=== PATIENT | male | born 1955 | race African-American/Black ===

== ENCOUNTER 2019-12-04 19:24 | Inpatient (IN) | payer OTHER, SELFPAY ==
[2019-12-04] MEDS ORDERED: fentaNYL Citrate/PF 2,000 MCG in Sodium Chloride 0.9% 60 ML IV SCH (19:36)
[2019-12-04 19:43] LABS: Hemoglobin 13.5 g/dL (14.0-18.0); Mean Corpuscular Hemoglobin 29.4 pg (27.0-31.0); Mean Corpuscular Volume 91.9 fL (78.0-98.0); Mean Platelet Volume 8.8 fL (7.4-10.4); Platelet Count 250 thou/uL (130-400); RBC Distribution Width 11.8 % (11.5-14.5); Red Blood Cell (RBC) Count 4.61 mill/uL (4.70-6.10); White Blood Cell (WBC) Count 23.1 thou/uL (4.8-10.8)
[2019-12-04] MEDS ORDERED: niCARdipine 25 MG in Sodium Chloride 0.9% 250 ML 240 ML IVPB SCH (19:45)
[2019-12-04 19:49] LABS: Actual Bicarbonate (HCO3a) 19.5 mEq/L (22-28); Analyzer IN Cardio ER; Base Excess (BEa) -15.3 mEq/L (-2.0 to +3.0); Calcium, Ionized 1.24 mmol/L (1.12-1.30); Carboxyhemoglobin (COHb) 0.3 gm% (0.0-3.0); Hemoglobin (Hb) 14.1 g/dL (14.0-18.0); O2 Tension (PaO2) 454.7 mmHg (> 80.0); Potassium - ABG Lab 3.58 mmol/L (3.70-5.30)
[2019-12-04 19:50] LABS: CO2 Tension 100.2 mmHg (35.0-45.0); pH, Arterial 6.91 (7.35-7.45)
[2019-12-04 19:51] LABS: Puncture Site LR
[2019-12-04 19:55] LABS: Band 5 % (5-11); Eosinophils 2 % (0-10); Lymphocytes 51 % (21-51); MDiff Complete? YES; Monocytes 3 % (0-10); Myelocyte 1 % (0-0); Neutrophil 34 % (42-75); Platelet Morphology Comment Appears Adequate; RBC Morphology Normal; Reactive Lymphocytes 4 % (0-10)
--- NOTE | 2019-12-04 20:03 | RAD ---
SINGLE VIEW OF THE CHEST: Comparison: 04-07-10 History: Status post CPR and intubation for cardiopulmonary arrest. FINDINGS: Single view of the chest shows normal sized cardiomediastinal silhouette. There is an endotracheal tu be with its tip between the clavicles. An NG tube courses off the inferior aspect of the film. There is no evidence of consolidation, mass, or pleural effusion. IMPRESSION: Appropriate position of lines and tubes. POS: [facility]
[2019-12-04 20:09] LABS: ALT (SGPT) 33 U/L (8-55); AST (SGOT) 32 U/L (5-34); Alkaline Phosphatase 69 U/L (40-110); Anion Gap 17 mmol/L (10-20); BUN (Urea Nitrogen) 29 mg/dL (8.4-25.7); Bilirubin, Total 0.3 mg/dL (0.2-1.2); CK (CPK) 352 U/L (30-200); Calc. Creatinine Clearance 0 mL/min (70-130); Calcium 8.7 mg/dL (7.8-10.44); Carbon Dioxide 21 mmol/L (23-31); Chloride 106 mmol/L (98-107); Estimated GFR-MDRD 43; Globulin 3.4 g/dL (2.4-3.5); Glucose 281 mg/dL (80-115); Potassium 3.3 mmol/L (3.5-5.1); Protein, Total 7.4 g/dL (5.8-8.1); Sodium 141 mmol/L (136-145)
[2019-12-04 20:21] LABS: Bilirubin Negative (Negative); Blood, Urine 3+ (Negative); Clarity Extra Turbid (Clear); Glucose, Urine (Dipstick) 50 mg/dL (Negative); Leukocyte Negative Leu/uL (Negative); Nitrite Negative (Negative); Protein, Urine (Dipstick) 300 mg/dL (Neg-Trace); RBC/HPF Greater than 50 HPF (0-3); Urobilinogen Normal mg/dL (Less than 2)
[2019-12-04 20:28] LABS: Squamous Epithelial 0-3 HPF (0-3)
[2019-12-04 20:29] LABS: Bacteria/HPF None Seen HPF (None Seen); Transitional Epithelial 0-3 HPF (None Seen); WBC/HPF 0-3 HPF (0-3)
[2019-12-04] MEDS ORDERED: Fentanyl BOLUS 250 ML IVPB PRN (20:54)
[2019-12-04] MEDS ORDERED: DISCONTINUE PREVIOUS NARCOTIC PAIN MEDICATIONS AND BENZODIAZEPINES FS SCH (20:54)
[2019-12-04] MEDS ORDERED: Morphine 2 MG/ML SYRINGE SLOW IVP PRN (20:54)
[2019-12-04] MEDS ORDERED: Propofol BOLUS 1,000 MG/100 ML VIAL IV PRN (20:54)
--- NOTE | 2019-12-04 21:03 | PDOC.FPRHP ---
- History of Present Illness Chief Complaint: SOB History of Present Illness: Patient is a 64M with a PMHx of asthma, HTN, possible hx of treated Hepatitis C , and known liver abnormalities currently being worked-up in [place] that was brought to the ED via EMS after being found having an asthma exacerbation. Per report patient had been feeling progressively SOB today, which did not improve with his albuterol inhaler. EMS was called by family, after which EMS found patient having difficulty breathing with O2 sat in the 60s. Patient's heart rate reportedly slowed to the 20s and patient became unresponsive, after which EMS began CPR and intubation. The patient required 1 round of CPR before ROSC was achieved. He was given epi, 1 duoneb, and IV Magnesium, and the patient was brought to the hospital for further evaluation. Family members accompanied patient to the ED, so all of his history was attained from them. He has a hx of asthma with no reported hx of needing to be hospitalized for an exacerbation. He only uses albuterol at home. He also was thought to have a hx of Hepatitis C that was treated 5 years ago. Patient's brothers state that he has also been undergoing a [facility] [place] [facility] receives his care. ED Course: 125mg solumedrol, cardene drip started, fentanyl, 1L NS - Allergies/Adverse Reactions Allergies Allergy/AdvReac Type Severity Reaction Status Date / Time No Known Allergies Allergy Unverified 06/26/13 10:24 - History PMHx: PMHx of asthma, HTN, possible hx of treated Hepatitis C, and known liver abnormalities currently being worked-up in [place] PSHx: possible liver sx; no hx of paracentesis FHx: non-contributory Social: does not smoke; has a hx of drug and etoh use but does not use either currently - Review of Systems ROS unobtainable: due to endotracheal tube Respiratory: reports: shortness of breath - Vital signs BP: [182/107] HR: [127] RR: [28] Tmax: [98.2F] Pox: [99]% on [ventilator] Wt: [93.5kg] - Physical Exam Constitutional: other (sedated and intubated) HEENT: normocephalic and atraumatic, PERRLA, MMM Neck: supple, trachea midline Chest: no lesions Heart: RRR, normal S1/S2 Lungs: other (poor air movement, expiratory wheezing throughout) Abdomen: soft, bowel sounds present Musculoskeletal: normal structure, normal tone Neurological: other (pupillary reflexes intact; difficult to assess 2/2 paralytic) Skin: no rash/lesions, good turgor Heme/Lymphatic: no unusual bruising or bleeding, no purpura FMR H&P: Results - Labs Result Diagrams: 12/05/19 03:13 12/05/19 03:13 Lab results: WBC 23.1 thou/uL (4.8-10.8) H 12/04/19 19:31 Hgb 13.5 g/dL (14.0-18.0) L 12/04/19 19:31 Hct 42.3 % (42.0-52.0) 12/04/19 19:31 MCV 91.9 fL (78.0-98.0) 12/04/19 19:31 Plt Count 250 thou/uL (130-400) 12/04/19 19:31 Band Neuts % (Manual) 5 % (5-11) 12/04/19 19:31 ABG pH 6.91 (7.35-7.45) L* 12/04/19 19:42 ABG pCO2 100.2 mmHg (35.0-45.0) H* 12/04/19 19:42 ABG pO2 454.7 mmHg (> 80.0) H 12/04/19 19:42 Sodium 141 mmol/L (136-145) 12/04/19 19:31 Potassium 3.3 mmol/L (3.5-5.1) L 12/04/19 19:31 Chloride 106 mmol/L (98-107) 12/04/19 19:31 Carbon Dioxide 21 mmol/L (23-31) L 12/04/19 19:31 BUN 29 mg/dL (8.4-25.7) H 12/04/19 19:31 Creatinine 1.91 mg/dL (0.7-1.3) H 12/04/19 19:31 Glucose 281 mg/dL (80-115) H 12/04/19 19:31 Calcium 8.7 mg/dL (7.8-10.44) 12/04/19 19:31 Total Bilirubin 0.3 mg/dL (0.2-1.2) 12/04/19 19: AST 32 U/L (5-34) 12/04/19 19: ALT 33 U/L (8-55) 12/04/19 19: Alkaline Phosphatase 69 U/L (40-110) 12/04/19 19:31 Creatine Kinase 352 U/L (30-200) H 12/04/19 19:31 B-Natriuretic Peptide 15.7 pg/mL (0-100) 12/04/19 19: Serum Total Protein 7.4 g/dL (5.8-8.1) 12/04/19 19: Albumin 4.0 g/dL (3.4-4.8) 12/04/19 19: Urine Ketones Negative mg/dL (Negative) 12/04/19 20: Urine Blood 3+ (Negative) A 12/04/19 20: Urine Nitrite Negative (Negative) 12/04/19 20: Ur Leukocyte Esterase Negative Roberto Carlos/uL (Negative) 12/04/19 20: Urine RBC Greater than 50 HPF (0-3) A 12/04/19 20:03 Urine WBC 0-3 HPF (0-3) 12/04/19 20:03 Ur Squamous Epith Cells 0-3 HPF (0-3) 12/04/19 20:03 Urine Bacteria None Seen HPF (None Seen) 12/04/19 20:03 - EKG Interpretation EKG: Sinus tach. RBBB - Radiology Interpretation Chest x-ray Status: report reviewed by me (appropriate position of lines and tubes) FMR H&P: A/P - Problem List (1) Asthma exacerbation Current Visit: Yes Status: Acute Code(s): J45.901 - UNSPECIFIED ASTHMA WITH (ACUTE) EXACERBATION (2) HTN (hypertension) Current Visit: Yes Status: Acute Code(s): I10 - ESSENTIAL (PRIMARY) HYPERTENSION (3) Acute respiratory failure with hypoxia Current Visit: Yes Status: Acute Code(s): J96.01 - ACUTE RESPIRATORY FAILURE WITH HYPOXIA (4) Hypokalemia Current Visit: Yes Status: Acute Code(s): E87.6 - HYPOKALEMIA (5) Hyperglycemia Current Visit: Yes Status: Acute Code(s): R73.9 - HYPERGLYCEMIA, UNSPECIFIED (6) ROSIE (acute kidney injury) Current Visit: Yes Status: Acute Code(s): N17.9 - ACUTE KIDNEY FAILURE, UNSPECIFIED - Plan Patient is a 64M with PMHx of Asthma, HTN, likely Hepatitis C, admitted for acute hypoxic respiratory failure 2/2 asthma exacerbation #Acute hypoxic respiratory failure 2/2 asthma exacerbation -patient has hx of asthma, uses albuterol at home -required CPR and intubation via EMS -CXR shows appropriate placement of tube -ABG shows pH 6.91, pCO2 100.2, pO2 454.7, will repeat and monitor -ventilation protocol -will monitor respiratory status for ability to extubate -loy and prn albuterol -IV solumedrol -pulmonology consult in am #HTN -uncertainty of home meds -currently on cardene drip, will wean as tolerated -after cardene drip weaned will continue to monitor and add meds prn #Hx of possible Hep C -reportedly followed by [facility] for liver workup at this time -AST/ALT/bili wnl #Hypokalemia -potassium 3.3, and will likely continue to decrease with albuterol -will aggressively replete and continue to monitor #Hyperglycemia -glucose 187 -possible stress reaction -A1C pending -will place on ISS #ROSIE vs CKD -creatinine 1.91, GFR 43 -will continue to monitor DVT ppx: lovenox Diet: NPO Dispo: CCU for respiratory monitoring on ventilator. Will continue to monitor ABG for signs of improvement. Loy and prn albuterol. Pulmonology consult in am. Code: Full PCP: [facility] FMR H&P: Upper Level - Pertinent history 64 yo M with Hx of asthma, HTN, and treated Hep C with unknown hepatic complications here for acute respiratory failure with cardiac arrest s/p ROSC. Per family, he has a hx of asthma and generally uses albuterol inhaled as needed. He has never been hospitalized for asthma in the past. Today he started to have increasing SOB and wheezing. This progressed until he became so SOB that his family called EMS. Upon arrival, EMS noted that his O2 sat was in the 60s. He was given epi, a duoneb, and IV Mg. He then became tracy into the 20s and was unresponsive. CPR was initiated and ROSC was achieved after 1 round of CPR. He was given ketamine and rocuronium for intubation. Upon arrival to the ER and abg found a pH of 6.9 with a pCO2 of 100. Regarding his hepatic hx, per his family he was treated a few years ago. He also has had an unknown surgery on his liver in the past. He has no hx of known cirrhosis. PMHx HTN Hep C, treated Surgical hx Unknown hepatic surgery Social Hx Past etoh and IVDU No tobacco hx - Pertinent findings See quality internship note for full ROS, PE, vitals, and labs ROS unobtainable due to intubation PE General GCS 3T HEENT NCAT CV tachycardic, no murmur Resp poor air movement. Wheezing throughout Abd soft, non-distended. Laparotomy scar noted Extremities no edema, equal pedal pulses Neuro cannot fully evaluate due to paralytics on board. Pupillary reflexes intact - Plan Date/Time: 12/04/192102 I, Sunday Mcdonnell, , have evaluated this patient and agree with findings/plan as outlined by quality internship resident. Pertinent changes/additions are listed here. 1.Acute hypoxic respiratory failure secondary to asthma exacerbation - Pt is currently stable. Plan to admit to ICU -Continue scheduled albuterol neb. -Repeat ABG now, will repeat again pending results. Current abg c/w asthma exacerbation vs other obstructive pathology -Continue IV solumedrol 2.Hypertension -likely related to ketamine. Currently getting cardene gtt, would expect this to be weaned off quickly. 3.Hypokalemia -Will aggressively replace as he will be getting frequent albuterol. 4.Hyperglycemia -Possibly related to stress reaction, however this is higher than what would normally be expected. Will order A1c and start SSI 5.ROSIE vs CKD -Likely due to poor perfusion. Repeat CMP in morning PPx SCD, lovenox Diet NPO Code Full Dispo: pt is currently in stable, but in critical condition. Addendum - Attending - Attending Attestation Date/Time: 12/05/19 2707 I personally evaluated the patient and discussed the management with Dr. Mcdonnell and Fl[place]. I agree with the History, Examination, Assessment and Plan documented above with any addition or exceptions noted below. Patient s/p hypoxic arrest with subsequent ROSC 2/2 presumed asthma exacerbation. He has diffuse wheezing and poor air movement. Continue nebs, lower rate pending repeat ABG and continue prolonged I:E. Check TnI and monitor.
[2019-12-04] MEDS ORDERED: Ventilator Sedation Protocol 1 EACH FS SCH (21:06)
[2019-12-04] MEDS: Propofol 1,000 MG/100 ML VIAL IV PRN (21:10)
[2019-12-04] MEDS: Sodium Chloride 0.9% 1,000 ML IV SCH (21:11)
[2019-12-04 21:15] LABS: Actual Bicarbonate (HCO3a) 19.3 mEq/L (22-28); Base Excess (BEa) -8.7 mEq/L (-2.0 to +3.0); CO2 Tension 49.5 mmHg (35.0-45.0); Calcium, Ionized 1.19 mmol/L (1.12-1.30); Carboxyhemoglobin (COHb) 0.4 gm% (0.0-3.0); Hemoglobin (Hb) 13.8 g/dL (14.0-18.0); O2 Tension (PaO2) 304.6 mmHg (> 80.0); Potassium - ABG Lab 4.97 mmol/L (3.70-5.30)
[2019-12-04 21:16] LABS: Puncture Site RBRACHIAL; pH, Arterial 7.21 (7.35-7.45)
[2019-12-04 21:17] LABS: ALV-art Gradient 61.325 (0-20)
[2019-12-04] MEDS ORDERED: Albuterol Sulfate 1.25 MG/3 ML NEB NEB PRN (21:29)
[2019-12-04] MEDS: Albuterol Sulfate 2.5 mg/3 ml Neb NEB SCH ×2 (21:30→23:57)
[2019-12-04] MEDS: Lorazepam 2 MG/ML VIAL SLOW IVP PRN (21:39)
[2019-12-04] MEDS ORDERED: Albuterol Sulfate 1.25 MG/3 ML NEB NEB SCH (22:00)
[2019-12-04] MEDS: Potassium Chloride 40 MEQ in Sodium Chloride 0.9% 250 ML 250 ML IVPB SCH (22:41)
[2019-12-04] MEDS: HumaLOG 300 UNITS/3 ML VIAL SC PRN (22:48)
[2019-12-04 23:04] LABS: Lactic Acid 1.6 mmol/L (0.5-2.2)
[2019-12-05] MEDS: methylPREDNISolone Sod Succ/PF 125 MG/2 ML VIAL IVP SCH ×2 (00:15→06:38)
[2019-12-05] MEDS: Bacteriostatic Water 30 ML VIAL FS PRN ×2 (00:15→06:38)
[2019-12-05] MEDS: Lorazepam 2 MG/ML VIAL SLOW IVP PRN (01:08)
[2019-12-05] MEDS: Albuterol Sulfate 2.5 mg/3 ml Neb NEB SCH ×6 (01:38→10:52)
[2019-12-05] MEDS: Potassium Chloride 40 MEQ in Sodium Chloride 0.9% 250 ML 250 ML IVPB SCH (02:59)
[2019-12-05 03:56] LABS: Band 6 % (5-11); Lymphocytes 3 % (21-51); MDiff Complete? YES; Mean Corpuscular Hemoglobin 30.1 pg (27.0-31.0); Mean Corpuscular Volume 88.6 fL (78.0-98.0); Mean Platelet Volume 8.9 fL (7.4-10.4); Neutrophil 91 % (42-75); Platelet Count 175 thou/uL (130-400); Platelet Morphology Comment Appears Adequate; RBC Distribution Width 11.9 % (11.5-14.5); Red Blood Cell (RBC) Count 4.64 mill/uL (4.70-6.10); White Blood Cell (WBC) Count 13.2 thou/uL (4.8-10.8)
[2019-12-05 04:05] LABS: ALT (SGPT) 40 U/L (8-55); AST (SGOT) 34 U/L (5-34); Albumin 3.9 g/dL (3.4-4.8); Alkaline Phosphatase 65 U/L (40-110); Anion Gap 15 mmol/L (10-20); BUN (Urea Nitrogen) 31 mg/dL (8.4-25.7); Bilirubin, Total 0.4 mg/dL (0.2-1.2); Calc. Creatinine Clearance 56 mL/min (70-130); Calcium 8.9 mg/dL (7.8-10.44); Carbon Dioxide 18 mmol/L (23-31); Chloride 110 mmol/L (98-107); Estimated GFR-MDRD 47; Globulin 3.5 g/dL (2.4-3.5); Glucose 134 mg/dL (80-115); Potassium 5.2 mmol/L (3.5-5.1); Protein, Total 7.4 g/dL (5.8-8.1); Sodium 138 mmol/L (136-145)
[2019-12-05] MEDS: Propofol 1,000 MG/100 ML VIAL IV PRN (04:56)
[2019-12-05 05:06] VITALS: BMI 29.2
[2019-12-05] MEDS: Sodium Chloride 0.9% 1,000 ML IV SCH (06:37)
[2019-12-05 07:02] LABS: Actual Bicarbonate (HCO3a) 16.5 mEq/L (22-28); Base Excess (BEa) -9.8 mEq/L (-2.0 to +3.0); CO2 Tension 37.7 mmHg (35.0-45.0); Calcium, Ionized 1.21 mmol/L (1.12-1.30); Carboxyhemoglobin (COHb) 0.2 gm% (0.0-3.0); O2 Tension (PaO2) 98.7 mmHg (> 80.0); Potassium - ABG Lab 4.64 mmol/L (3.70-5.30); pH, Arterial 7.26 (7.35-7.45)
[2019-12-05 07:12] LABS: Puncture Site RRA
[2019-12-05 07:13] LABS: ALV-art Gradient 103.725 (0-20)
[2019-12-05] MEDS ORDERED: hydrALAZINE 20 MG/ML VIAL SLOW IVP PRN (08:28)
--- NOTE | 2019-12-05 08:31 | PDOC.FM ---
- Subjective Subjective: resting comfortably, intubated and sedated. Pt is off cardene drip. No acute events overnight. - Objective Vital Signs & Weight: Vital Signs (12 hours) Temp Pulse Resp BP BP Pulse Ox 12/05/19 06:52 87 151/76 H 12/05/19 06:00 28 H 12/05/19 05:10 79 28 H 97 12/05/19 04:00 97.8 F 28 H 12/05/19 03:30 78 28 H 95 12/05/19 02:00 28 H 12/05/19 01:39 73 126/64 12/05/19 01:38 72 28 H 97 12/05/19 00:00 97.9 F 28 H 12/04/19 23:57 71 28 H 99 12/04/19 22:08 98 81/53 L 12/04/19 22:00 28 H 12/04/19 21:30 111 H 28 H 100 12/04/19 21:00 98 12/04/19 20:59 119 H 185/108 H 12/04/19 20:42 97.7 F 120 H 30 H 136/82 95 Weight Admit Weight 95.3 kg Weight 95.3 kg Most Recent Monitor Data Heart Rate from ECG 82 NIBP 151/76 NIBP BP-Mean 101 Respiration from ECG 28 SpO2 98 I&O: 12/04/19 12/05/19 12/06/19 06:59 06:59 06:59 Intake Total 1169.3 Output Total 1170 Balance -0.7 Result Diagrams: 12/05/19 03:13 12/05/19 03:13 Phys Exam - Physical Examination Constitutional: NAD HEENT: moist MMs, sclera anicteric Neck: supple Respiratory: no rhonchi, wheezing present Cardiovascular: RRR, no significant murmur Gastrointestinal: soft, non-tender Musculoskeletal: no edema, pulses present sedated Deviation from normal: sedated Skin: no rash, normal turgor Dx/Plan (1) Acute respiratory failure with hypoxia Code(s): J96.01 - ACUTE RESPIRATORY FAILURE WITH HYPOXIA Status: Acute (2) Asthma exacerbation Code(s): J45.901 - UNSPECIFIED ASTHMA WITH (ACUTE) EXACERBATION Status: Acute (3) ROSIE (acute kidney injury) Code(s): N17.9 - ACUTE KIDNEY FAILURE, UNSPECIFIED Status: Acute (4) HTN (hypertension) Code(s): I10 - ESSENTIAL (PRIMARY) HYPERTENSION Status: Acute (5) Hyperglycemia Code(s): R73.9 - HYPERGLYCEMIA, UNSPECIFIED Status: Acute (6) Hypokalemia Code(s): E87.6 - HYPOKALEMIA Status: Acute - Plan Plan: Patient is a 64M with PMHx of Asthma, HTN, likely Hepatitis C, admitted for acute hypoxic respiratory failure 2/2 asthma exacerbation Acute hypoxic respiratory failure 2/2 asthma exacerbation A-patient has hx of asthma, uses albuterol at home. required CPR and intubation via EMS. ABG on admission shows pH 6.91, pCO2 100.2, pO2 454.7, has improved since then P- continue on vent, wean as tolerated per RT and pulm -monet and prn albuterol -IV solumedrol daily -pulm consult today HTN A- HTN in ER likely 2/2 ketamine and respiratory distress. Was started on cardene drip and quickly weaned. off drip now. uncertainty of home meds P- prn hydralazine -will do med rec once pt is extubated Hypokalemia, resolved A- potassium 3.3-> 5.2. albuterol may lower again. P- will continue to monitor and replace as needed Hx of possible Hep C -reportedly followed by [facility] for liver workup at this time. AST/ALT/bili wnl prediabetes A- glucose 187 on admission, likely stress reaction. A1C 6 P- SSI, accuchecks, will recommend outpt f/u ROSIE vs CKD A- creatinine 1.91, GFR 43 on admission, likely some injury component 2/2 perfusion injury during code P- will continue to monitor DVT ppx: lovenox Diet: NPO Code: Full PCP: [facility] Addendum - Attending - Attending Attestation Date/Time: 12/05/19 3852 I personally evaluated the patient and discussed the management with Dr. Andujar. I agree with the History, Examination, Assessment and Plan documented above with any addition or exceptions noted below. Patient overall stable. Continues on Vent but off sedation. He is admitted for hypoxic resp failure 2/2 Asthma exacerbation. Continue nebs and steroids. Pulm on board. BP improved off Cardene. Changing fluids due to hyperchloremia. Repeat K but anticipate this was due to lab draw during IV fluids running. Renal function improved, continue to monitor UOP.
[2019-12-05] MEDS ORDERED: Lactated Ringer's 1,000 ML IV SCH (08:45)
[2019-12-05] MEDS: Enoxaparin Sodium 40 MG/0.4 ML SYRINGE SC SCH (09:05)
[2019-12-05] MEDS ORDERED: Albuterol Sulfate 2.5 mg/3 ml Neb NEB PRN (11:06)
--- NOTE | 2019-12-05 13:06 | CON ---
DATE OF CONSULTATION: 12/05/2019 REASON FOR CONSULTATION: Asthma exacerbation, admission into the CCU, intubation. HISTORY OF PRESENT ILLNESS: This is a 64-year-old male with medical history of asthma, who presented to the hospital in respiratory distress. The patient had been feeling increasingly short of breath and using his albuterol inhaler at home with not much improvement, and so EMS was called. In the ER, the patient received 125 mg of Solu-Medrol, IV magnesium, DuoNeb, and epinephrine and was intubated and transferred to the critical care unit. At the time of his exam, the patient had improved much and was put on spontaneous breathing trial, doing well with tidal volumes of 1.5 L. His sedation was also weaned, and the patient was following commands. PAST MEDICAL HISTORY: Asthma, hypertension, hepatitis C, unspecified liver issues. PAST SURGICAL HISTORY: Unknown. FAMILY HISTORY: Noncontributory. SOCIAL HISTORY: The patient does not smoke, has history of drug and alcohol use, but this is not current. REVIEW OF SYSTEMS: Unable to obtain as the patient is intubated. PHYSICAL EXAMINATION: VITAL SIGNS: Blood pressure 109/58, heart rate 81, respiratory rate 15, oxygen saturation 97% on vent. GENERAL: The patient is comfortably seated and following commands. He does not appear to be in any distress or agitation. HEENT: EOMI. Moist mucosal membranes. NECK: Soft. Full range of motion. CHEST: Some expiratory wheezing noted, otherwise clear to auscultation. HEART: Regular rate and rhythm. No murmurs. ABDOMEN: No tenderness, soft. EXTREMITIES: Moves all four. LABORATORY DATA: White blood cell count 13.2, hemoglobin 14, hematocrit 41.1, and platelet count 175. ABG; pH 7.26, bicarb 16.5, CO2 of 37.7. Sodium 138, potassium 5.2, BUN 31, creatinine of 1.76, chloride 110, carbon dioxide 18. IMAGING DATA: Chest x-ray; impression, appropriate position of lines and tubes. ASSESSMENT: 1. Hypoxic respiratory failure secondary to acute asthma exacerbation. 2. History of liver disease. 3. History of hypertension. RECOMMENDATIONS: The patient is doing well and weaning the vent quickly. I recommend spontaneous breathing trial with plans for extubation later this morning. If that goes well, the patient will be transferred to the medical floor as for his breathing treatments, DuoNebs will be scheduled every 6 hours with albuterol p.r.n. every 2 hours. Solu-Medrol will be dosed b.i.d. instead of daily. This patient was seen and evaluated by Dr. Daniel Gutiérrez on rounds, who agrees with the above findings. Job ID: [id number]
[2019-12-05] MEDS ORDERED: Polyethylene Glycol 3350 17 GM Packet PO PRN (14:55)
[2019-12-05] MEDS: HumaLOG 300 UNITS/3 ML VIAL SC PRN (17:15)
[2019-12-05] MEDS ORDERED: methylPREDNISolone Sod Succ/PF 125 MG/2 ML VIAL IVP SCH (18:00)
[2019-12-05] MEDS ORDERED: FLU VACC QS2019-20(6MOS UP)/PF 60 MCG/0.5 ML SYRINGE IM ONE (21:00)
[2019-12-05] MEDS: methylPREDNISolone Sod Succ 40 MG VIAL IVP SCH (21:51)
[2019-12-05] MEDS ORDERED: HYDROcodone/Acetaminophen 5/325 mg Tablet PO PRN (22:13)
[2019-12-05] MEDS ORDERED: Acetaminophen 325 MG TAB PO PRN (22:14)
[2019-12-06] MEDS ORDERED: Morphine 2 MG/ML SYRINGE SLOW IVP PRN (01:11)
[2019-12-06 06:30] LABS: Anion Gap 12 mmol/L (10-20); BUN (Urea Nitrogen) 32 mg/dL (8.4-25.7); Calc. Creatinine Clearance 67 mL/min (70-130); Calcium 9.3 mg/dL (7.8-10.44); Carbon Dioxide 21 mmol/L (23-31); Chloride 110 mmol/L (98-107); Estimated GFR-MDRD 57; Glucose 143 mg/dL (80-115); Potassium 4.8 mmol/L (3.5-5.1); Sodium 138 mmol/L (136-145)
--- NOTE | 2019-12-06 06:40 | PDOC.FM ---
- Subjective Subjective: Doing well this morning. Very eager to go home. Required morphine overnight for sternal pain related to CPR, [place] did not provide relief. Would like to go home and reports he does not need pain meds. Denies SOB. - Objective MAR Reviewed: Yes Vital Signs & Weight: Vital Signs (12 hours) Temp Pulse Resp BP Pulse Ox 12/06/19 04:15 97.8 F 107 H 21 H 144/79 H 97 12/06/19 00:28 98.4 F 122 H 23 H 148/83 H 96 12/05/19 22:56 113 H 18 98 12/05/19 19:43 98.2 F 121 H 24 H 143/76 H 97 12/05/19 19:29 112 H 16 98 Weight Admit Weight 95.3 kg Weight 95.3 kg Most Recent Monitor Data Heart Rate from ECG 120 NIBP 168/79 NIBP BP-Mean 108 Respiration from ECG 31 SpO2 97 I&O: 12/04/19 12/05/19 12/06/19 06:59 06:59 06:59 Intake Total 1169.3 1252.6 Output Total 1170 890 Balance -0.7 362.6 Result Diagrams: 12/05/19 03:13 12/06/19 05:43 Phys Exam - Physical Examination Constitutional: NAD HEENT: moist MMs Neck: supple Respiratory: no wheezing, clear to auscultation bilateral Cardiovascular: RRR, no significant murmur Gastrointestinal: soft, non-tender Neurological: moves all 4 limbs Psychiatric: normal affect, A&O x 3 Skin: normal turgor Dx/Plan - Plan Plan: 64M with PMHx of Asthma, HTN, likely Hepatitis C, admitted for acute hypoxic respiratory failure 2/2 asthma exacerbation Acute hypoxic respiratory failure 2/2 asthma exacerbation - Required CPR. Intubated 12/04. Extubated 12/06. - IV solumedrol BID - Duonebs q6h, albuterol PRN q2h. - Pulm consulted, apprec recs HTN - Initially on cardene gtt. Now 140's/70's - Hydralazine PRN - Will need to follow up with PCP for management as he report BP runs 180's systolic at home. Hypokalemia, resolved Hx of possible Hep C - Reportedly followed by [facility] for liver workup at this time - AST/ALT/bili wnl prediabetes - A1C 6 - SSI, accuchecks, recommend outpt f/u - Diabetic diet ROSIE vs CKD - Improving. Continue to monitor DVT ppx: lovenox Code Status: Full Addendum - Attending - Attending Attestation Date/Time: 12/06/19 1124 I personally evaluated the patient and discussed the management with Dr. Pollard. I agree with the History, Examination, Assessment and Plan documented above with any addition or exceptions noted below. Patient doing remarkably well from respiratory standpoint. He is on room air and feels at baseline. He feels his event was triggered by OTC inhaler he used once. Once Pulm clears, should be stable for discharge with outpatient steroid taper and resumption of home meds.
[2019-12-06 07:36] VITALS: BP 159/85; TEMP 97.7
[2019-12-06] MEDS: Enoxaparin Sodium 40 MG/0.4 ML SYRINGE SC SCH (07:49)
[2019-12-06] MEDS: methylPREDNISolone Sod Succ 40 MG VIAL IVP SCH (07:53)
--- NOTE | 2019-12-06 16:41 | PRG ---
DATE OF SERVICE: 12/06/2019 SERVICE: Pulmonary Medicine. INTERVAL HISTORY: The patient had a profound recovery from his asthma attack. After we have a chance to talk to him, apparently, he had a little bit of an asthma attack, but had run out of his albuterol. He typically takes Advair 500/50, and Spiriva at home. When he ran out of the albuterol, he went to the store to get some Primatene mist. He took a puff of that and that is when everything went into such a severe respiratory state that he presented to the emergency department. He was intubated before I was able to get any of this history from him previously. Ultimately, he tells me that his asthma is under very poor control. He typically uses albuterol 2 or 3 times on a daily basis and has to wake up frequently throughout the week at night in that as well. PHYSICAL EXAMINATION: VITAL SIGNS: Afebrile, pulse 123, blood pressure 159/85, respirations 18, saturation 97% on room air. GENERAL: The patient is awake and alert, in no apparent distress. LUNGS: Excellent air entry with no prolonged expiratory phase or wheezing present. HEART: Normal rate regular. ABDOMEN: Soft, nontender, and nondistended. Bowel sounds are positive. MUSCULOSKELETAL: No cyanosis or clubbing. No pitting in the bilateral lower extremities. NEUROLOGIC: Grossly nonfocal. LABORATORY DATA: WBC 13.2, hemoglobin 14.0, platelets 175,000. PH 7.26, pCO2 of 37, pO2 of 98. Creatinine 1.51, which is roughly stable. Basic metabolic profile is otherwise unremarkable. ASSESSMENT: 1. Acute hypoxic and hypercapnic respiratory failure, resolved. 2. Asthma with acute exacerbation. 3. Hypertension. DISCUSSION AND PLAN: From my perspective, the patient is stable for transition out of the hospital provided that we give him a 5-day course of steroids, and he has close followup in the outpatient setting. In 1 to 2 months in the outpatient setting, get a CBC with differential and an IgE level. If either one of these are abnormal, he should be considered for a biologic agent as he is already on multiple medications, and has poor control of his asthma with these medications. Job ID: [id number]
--- NOTE | 2019-12-06 19:54 | DIS ---
DATE OF ADMISSION: 12/04/2019 DATE OF DISCHARGE: 12/06/2019 RESIDENT: Caroline Pollard PGY-2. ADMITTING ATTENDING: Edward Rdoriguez MD DISCHARGE ATTENDING: Chuckie Helton MD CONSULT: Pulmonology. PROCEDURES: Chest x-ray on 12/04/2019, no evidence of consolidation, mass, or pleural effusion. PRIMARY DIAGNOSIS: Acute hypoxic respiratory failure secondary to asthma exacerbation. SECONDARY DIAGNOSES: 1. Hypertension. 2. Hypokalemia, resolved. 3. History of possible hep C. 4. Prediabetes. 5. Acute kidney injury versus chronic kidney disease. DISCHARGE MEDICATIONS: 1. Albuterol ProAir two inhalations q.4 hours p.r.n. 2. Albuterol nebulizer 2.5 mg q.4 hours p.r.n. 3. Advair 1 inhalation b.i.d. 4. DuoNeb 3 mL q.6 hours p.r.n. 5. Prednisone 40 mg x5 days. 6. Spiriva 2 inhalations q.a.m. HISTORY OF PRESENT ILLNESS/HOSPITAL COURSE: Mr. Stoner is a 64-year-old male with past medical history of asthma, hypertension, possibly hep C, who was brought in via EMS. For asthma exacerbation, the patient reports that he was out of his inhaler, therefore went to the store and bought an gfuc-erd-varblzv Primatene mist as soon as he took 2 inhalations, developed acute respiratory distress and called 911. The patient's heart rate reportedly fell down to the 20s and became unresponsive. The EMS started CPR and he was intubated. After one round of CPR, ROSC was achieved. He was given epi, one DuoNeb, IV magnesium, and brought to the ED. In the ED, he received 125 of Solu-Medrol, was started on a Cardene drip for severe range blood pressures, given fentanyl and 1 L normal saline. Her blood pressure was noted to be 182/107. His EKG showed sinus tachycardia, right bundle branch block. Initial ABG showed pH 6.91, pCO2 of 100.2, PO2 of 454.7. He is scheduled on DuoNebs with p.r.n. albuterol available and IV Solu-Medrol b.i.d. He was able to be extubated on 12/05/2019 and was doing well the morning of discharge. Breathing appears 100% on room air. In regard to his hypertension, he is uncertain of his home medications. He has weaned off the Cardene drip and the blood pressures were 150 systolic. He reports his home BP is around 180s systolic at home. In regard to his history of possible hep C, he reportedly follows at the [facility] and is undergoing liver workup at this time. His AST, ALT, and bilirubin were within normal limits. He is noted to be hypokalemic with potassium 3.3, this is likely secondary to albuterol, it was normal prior to discharge. Hyperglycemia; glucose was 187, A1c is 6.0, this is a new diagnosis of diabetes. This can be managed with his primary care doctor outpatient. In regard to his ROSIE versus CAD, discharge creatinine 1.51, GFR 57, would recommend repeating in a few days. Also in regard to his asthma, he appears to be poorly controlled despite using the Spiriva and Advair at home daily. He has been using his albuterol twice daily. In addition to this, he is being discharged on prednisone 40 mg x5 days. I would recommend his IgE and eosinophil levels be tested outpatient, but 1-2 months from now as this can be affected by the steroids he is taking. He would be a great candidate for Dupixent. It appears that his asthma is true allergic asthma as his symptoms did get worse after he quit smoking years ago. DISPOSITION: Stable. DISCHARGE INSTRUCTIONS: 1. Location: Home. 2. Diet: Diabetic. 3. Activity: No restrictions. 4. Follow up with Dr. Wilmer Hamilton within 7 days in [facility] for COPD. Job ID: [id number] [facility]
== END 2019-12-06 10:35 | disposition home or self-care (01) | DRG 208 ==
LOC: ERS 19:24 → CCU 20:39 → T4-B 12-05 17:42
PROVIDERS: ADMIT Emergency Medicine; ATTEND Emergency Medicine
PROC: 5A1935Z Respiratory Ventilation, Less than 24 Consecutive Hours (ICD-10-PCS; principal; 2019-12-04)
PROC: 3E02340 Introduction of Influenza Vaccine into Muscle, Percutaneous Approach (ICD-10-PCS; 2019-12-05)
PROC: 3E0234Z Introduction of Serum, Toxoid and Vaccine into Muscle, Percutaneous Approach (ICD-10-PCS; 2019-12-05)
DX: J96.01 Acute respiratory failure with hypoxia (principal); J45.901 Unspecified asthma with (acute) exacerbation; Z23 Encounter for immunization; N17.9 Acute kidney failure, unspecified; E87.6 Hypokalemia; I45.10 Unspecified right bundle-branch block; R73.9 Hyperglycemia, unspecified; I12.9 Hypertensive chronic kidney disease with stage 1 through stage 4 chronic kidney disease, or unspecified chronic kidney disease; N18.9 Chronic kidney disease, unspecified; E11.22 Type 2 diabetes mellitus with diabetic chronic kidney disease; E11.65 Type 2 diabetes mellitus with hyperglycemia; I25.10 Atherosclerotic heart disease of native coronary artery without angina pectoris; E87.8 Other disorders of electrolyte and fluid balance, not elsewhere classified; T48.6X5A Adverse effect of antiasthmatics, initial encounter; Z86.19 Personal history of other infectious and parasitic diseases
CPT/HCPCS: 36415; 36416; 71045; 80048; 80053; 81003; 81015; 82550; 82805; 83036; 83605; 83880; 84484; 85007; 85025; 85027; 93005; 94002; 94003; 94640; J1650; J2060; J2270; J2704; J2920; J2930; J3010; J3480; J3490; J7050; J7611; J7620

== ENCOUNTER 2020-01-06 07:43 | Outpatient (CLI) | payer OTHER ==
--- NOTE | 2020-01-06 08:58 | ULT ---
ULTRASOUND GALLBLADDER RIGHT UPPER QUADRANT: CLINICAL HISTORY: Cirrhosis. Hepatocellular carcinoma. Evaluate for mass.. COMPARISON: None. . FINDINGS: Pancreas: The head and proximal pancreatic body have a normal echotexture. The remainder the pancrea s is obscured by bowel gas. Liver: Heterogeneous hepatic parenchymal echotexture. Evaluation is limited for hepatic masses and i ntrahepatic biliary dilatation. Echogenic focus in the right hepatic lobe measures 1.0 x 1.0 x 1.5 cm. Right hepatic lobe: 15.5 cm. Gallbladder: No sonographic evidence of cholelithiasis, gallbladder wall thickening or pericholecysti c fluid. Summers's sign: Negative. Portal Vein: Patent. Appropriate directional flow. Bile ducts: Common bile duct diameter 0.5 cm. Right kidney: No hydronephrosis. 1.3 x 1.2 x 1.2 cm right renal cortical cyst.. Right kidney measures 5.0 x 4.4 x 10.2 cm in length. The right renal vein appears be somewhat dilated. There is echogenic material within the vein with some flow. Partial thrombosis is suspected. IMPRESSION: 1. Ill-defined echogenic focus in the right hepatic lobe as above. Differential considerations includ e a hepatic mass or posttreatment change. 2. Possible partial thrombosis of the right renal vein. 3. The constellation of findings may be better evaluated with a liver mass protocol CT. CODE T Transcribed Date/Time: 01/06/2020 8:50 AM
== END 2020-01-06 07:44 | disposition home or self-care (01) ==
LOC: BICULT 07:43
PROVIDERS: ATTEND Internal Medicine
DX: K74.69 Other cirrhosis of liver (principal)
CPT/HCPCS: 76705

== ENCOUNTER 2020-03-30 08:34 | Outpatient (CLI) | payer OTHER ==
[2020-03-30] MEDS ORDERED: Iopamidol 370 76% 100 ML VIAL ONE (09:55)
--- NOTE | 2020-03-30 11:16 | CT ---
CT ABDOMEN WITH AND WITHOUT IV CONTRAST: Date: 03/30/2020 HISTORY: 64-year-old male with hepatic mass that has been removed. Exam requested to evaluate for metastatic d isease. COMPARISON: None. CORRELATION: Gallbladder ultrasound of 01/06/2020. FINDINGS: There is a calcified granuloma at the left lung base. Postop change in surgical clips are noted in th e liver. No hepatic mass or abnormal biliary ductal dilatation is seen. The spleen, pancreas, and adr enal glands are normal. There are low density lesions in the kidneys, likely cysts. No calcified gall stones are seen. No free air, free fluid, or lymphadenopathy noted in the abdomen. There are vascular calcifications without evidence of aneurysmal dilatation of the abdominal aorta. There is no evidenc e of renal vein thrombosis. There are degenerative changes in the spine. No osteolytic or osteoblasti c lesions are seen. IMPRESSION: 1. No evidence of hepatic mass. 2. Probable renal cysts. POS: [facility]
== END 2020-03-30 08:35 | disposition home or self-care (01) ==
LOC: CT 08:34
DX: K76.89 Other specified diseases of liver (principal)
CPT/HCPCS: 74170; 82565; Q9967

== ENCOUNTER 2021-01-09 06:56 | Outpatient (CLI) | payer OTHER ==
--- NOTE | 2021-01-09 08:28 | ULT ---
GALLBLADDER ULTRASOUND: HISTORY: Cirrhosis. History of liver resection 3 years ago. FINDINGS: Rela-time imaging of the right upper quadrant shows a normal-appearing gallbladder. The common duct is 5 mm. The liver shows no focal abnormalities. It measures 16.2 cm in length. There are 2 cysts involving the right kidney measuring 1.5 and 1.8 cm. The pancreas is obscured. IMPRESSION: Essentially unremarkable right upper quadrant ultrasound. POS: [facility]
== END 2021-01-09 06:57 | disposition home or self-care (01) ==
LOC: BICULT 06:56
DX: K74.60 Unspecified cirrhosis of liver (principal)
CPT/HCPCS: 76705

== ENCOUNTER 2022-07-22 13:07 | Emergency (ER) | payer OTHER ==
[~2022-07-22 13:07] MED LIST: Iopamidol-370 76% 500 ML 1 ML ONE
[2022-07-22] MEDS ORDERED: Fentanyl 100 MCG/2 ML VIAL ONE ×2 (13:35→14:15)
[2022-07-22 13:40] LABS: #Eosinphils 0.2 thou/uL (0.0-0.7); #Lymphocytes 3.1 thou/uL (1.20-3.40); #Monocytes 0.6 thou/uL (0.11-0.59); #Neutrophils 5.7 thou/uL (1.40-6.50); %Basophils 0.1 % (0.0-1.0); %Eosinophils 2.4 % (0.0-10.0); %Lymphocytes 32.5 % (21.0-51.0); %Monocytes 5.9 % (0.0-10.0); %Neutrophils 59.1 % (42.0-75.0); Hemoglobin 14.2 g/dL (14.0-18.0); Mean Corpuscular HGB CONC 32.7 g/dL (32.0-36.0); Mean Corpuscular Hemoglobin 29.8 pg (27.0-31.0); Mean Corpuscular Volume 91.1 fL (78.0-98.0); Mean Platelet Volume 8.3 fL (7.4-10.4); Platelet Count 237 thou/uL (130-400); RBC Distribution Width 12.1 % (11.5-14.5); Red Blood Cell (RBC) Count 4.76 mill/uL (4.70-6.10); White Blood Cell (WBC) Count 9.6 thou/uL (4.8-10.8)
[2022-07-22 13:49] LABS: PTT 29.7 sec (22.9-36.1); Prothrombin Time 13.3 sec (12.0-14.7)
[2022-07-22 14:11] LABS: ALT (SGPT) 31 U/L (8-55); AST (SGOT) 22 U/L (5-34); Albumin 4.2 g/dL (3.4-4.8); Alkaline Phosphatase 65 U/L (40-110); Anion Gap 14 mmol/L (10-20); BUN (Urea Nitrogen) 16 mg/dL (8.4-25.7); Bilirubin, Total 0.4 mg/dL (0.2-1.2); Calc. Creatinine Clearance 0 mL/min (70-130); Calcium 9.8 mg/dL (7.8-10.44); Carbon Dioxide 25 mmol/L (23-31); Chloride 105 mmol/L (98-107); Estimated GFR 48; Globulin 3.7 g/dL (2.4-3.5); Glucose 91 mg/dL (80-115); Potassium 4.1 mmol/L (3.5-5.1); Protein, Total 7.9 g/dL (5.8-8.1); Sodium 140 mmol/L (136-145)
== END 2022-07-22 15:08 | disposition home or self-care (01) ==
LOC: ERS 13:07
DX: M54.2 Cervicalgia (principal); R51.9 Headache, unspecified; R10.9 Unspecified abdominal pain; M25.511 Pain in right shoulder; M79.604 Pain in right leg; J84.10 Pulmonary fibrosis, unspecified; I10 Essential (primary) hypertension; J44.9 Chronic obstructive pulmonary disease, unspecified; D02.20 Carcinoma in situ of unspecified bronchus and lung; V49.49XA Driver injured in collision with other motor vehicles in traffic accident, initial encounter; W22.11XA Striking against or struck by driver side automobile airbag, initial encounter
CPT/HCPCS: 36415; 70450; 71045; 71260; 72125; 72170; 74177; 80053; 83605; 85025; 85610; 85730; 96374; 96376; J3010; Q9967